=== PATIENT | male | born 1975 | race Caucasian/White ===

== ENCOUNTER 2017-04-20 11:23 | Emergency (ER) | payer SELFPAY ==
[2017-04-20 11:41] VITALS: BP 144/97
[2017-04-20] MEDS ORDERED: XYLOCAINE 2%/EPI 1:100,000 INFILTRATI ONE (11:42)
[2017-04-20] MEDS ORDERED: BOOSTRIX IM ONE (11:43)
[2017-04-20] MEDS ORDERED: NORCO 5/325 PO ONE (11:43)
--- NOTE | 2017-04-20 11:45 | Emergency Department Report ---
- General Chief Complaint: Wound/Laceration Stated Complaint: CUT ARM Time Seen by Provider: 04/20/17 11:42 Source: patient Mode of arrival: Ambulatory Limitations: No Limitations - History of Present Illness Initial Comments: 41-year-old male past medical history none presents with complaint of accidentally cutting his right elbow with a box toe stitcher at work today. Patient states he accidentally grazed an open box toe stitcher that was sent on a table at work. Patient has visible laceration to right elbow approximately 3 inches in length with oozing of blood. Patient unaware of tetanus status. Patient denies any other injuries. Patient is awake alert and oriented 3. Patient visibly flexing and extending his elbow without any difficulty. Onset/Timin -: hour(s) Extremity Location: Right: Elbow (3 inch laceration on the lateral aspect of the right elbow just below right elbow/proximal forearm) 1 - Laceration here Patient Tetanus UTD: No Context: accidental Associated Symptoms: pain - Related Data Previous Rx's Medication Instructions Recorded Last Taken Type Acetaminophen/Codeine [Tylenol 1 tab PO Q6H PRN #8 tab 04/20/17 Unknown Rx /Codeine # 3 tab] Cephalexin [Keflex] 500 mg PO Q12HR #10 cap 04/20/17 Unknown Rx Ibuprofen [Motrin] 600 mg PO Q8H PRN #25 tablet 04/20/17 Unknown Rx Neomycn/Baci Zn/Pmyx Bs/Pramox 28 gm TP BID #1 oint...g. 04/20/17 Unknown Rx [Triple Antibioti-Pain Rlf Oint] ED Review of Systems ROS: Stated complaint: CUT ARM Other details as noted in HPI Constitutional: denies: chills, fever Eyes: denies: eye pain, eye discharge, vision change ENT: denies: ear pain, throat pain Respiratory: denies: cough, shortness of breath, wheezing Cardiovascular: denies: chest pain, palpitations Endocrine: no symptoms reported Gastrointestinal: denies: abdominal pain, nausea, diarrhea Genitourinary: denies: urgency, dysuria Musculoskeletal: denies: back pain, joint swelling, arthralgia Skin: denies: rash, lesions Neurological: denies: headache, weakness, paresthesias Psychiatric: denies: anxiety, depression Hematological/Lymphatic: denies: easy bleeding, easy bruising ED Past Medical Hx - Past Medical History Previous Medical History?: No - Surgical History Past Surgical History?: No - Social History Smoking Status: Current Every Day Smoker Substance Use Type: Alcohol - Medications Home Medications: Home Medications Medication Instructions Recorded Confirmed Last Taken Type Acetaminophen/Codeine [Tylenol 1 tab PO Q6H PRN #8 tab 04/20/17 Unknown Rx /Codeine # 3 tab] Cephalexin [Keflex] 500 mg PO Q12HR #10 cap 04/20/17 Unknown Rx Ibuprofen [Motrin] 600 mg PO Q8H PRN #25 tablet 04/20/17 Unknown Rx Neomycn/Baci Zn/Pmyx Bs/Pramox 28 gm TP BID #1 oint...g. 04/20/17 Unknown Rx [Triple Antibioti-Pain Rlf Oint] ED Physical Exam - General Limitations: No Limitations General appearance: alert, in no apparent distress - Head Head exam: Present: atraumatic, normocephalic - Eye Eye exam: Present: normal appearance, PERRL, EOMI - ENT ENT exam: Present: mucous membranes moist - Neck Neck exam: Present: normal inspection - Respiratory Respiratory exam: Present: normal lung sounds bilaterally. Absent: respiratory distress - Cardiovascular Cardiovascular Exam: Present: regular rate, normal rhythm. Absent: systolic murmur, diastolic murmur, rubs, gallop - GI/Abdominal GI/Abdominal exam: Present: soft, normal bowel sounds - Rectal Rectal exam: Present: deferred - Extremities Exam Extremities exam: Present: normal inspection - Expanded Upper Extremity Exam Right Shoulder Exam: Present: normal inspection, full ROM Upper Arm exam: Present: normal inspection, full ROM Elbow exam: Present: tenderness, laceration (3 inch laceration below area of right elbow/proximal forearm lateral aspect, subcutaneous tissue exposed) Forearm Wrist exam: Present: tenderness, laceration (see above) Hand Wrist exam: Present: normal inspection, full ROM Neuro motor exam: Present: wrist extension intact, thumb opposition intact, thumb IP flexion intact, thumb adduction intact, fingers 2-5 abduction intact, other Vascular: Present: radial pulse, brachial pulse, ulnar pulse (distal pulses fully intact on clinical palpation) - Back Exam Back exam: Present: normal inspection - Neurological Exam Neurological exam: Present: alert, oriented X3, CN II-XII intact, normal gait - Psychiatric Psychiatric exam: Present: normal affect, normal mood - Skin Skin exam: Present: warm, dry, intact, normal color. Absent: rash ED Course Vital Signs 04/20/17 11:39 Temperature 89 F L Pulse Rate 89 Respiratory 18 Rate Blood Pressure 144/97 O2 Sat by Pulse 100 Oximetry - Laceration /Wound Repair Right Proximal Arm Wound Location: upper extremity Wound Length (cm): 7 Wound's Depth, Shape: into muscle Irrigated w/ Saline (ccs): 1,000 Betadine Prep?: Yes Anesthesia: Lidocaine w/ Epi Volume Anesthetic (ccs): 8 Wound Debrided: minimal Wound Repaired With: sutures Suture Size/Type: 3:0, proline Number of Sutures: 10 Layer Closure?: Yes Deep Layer Suture Size/Type: 4:0, chromic Number Deep Layer Sutures: 10 Sterile Dressing Applied?: Yes (triple abx w/ gauze) Progress: procedure tolerated well, minimal bleeding, good wound closure achieved ED Medical Decision Making - Medical Decision Making A/P: Right elbow/forearm laceration 1-tetanus updated today 2-keflex 500 mg twice a day 5 days 3-good wound closure achieved 4-sutures to be removed in approximately 7-10 days 5- advised patient to return to the ED if he experiences any pus drainage from wound or any erythema surrounding site any fevers or chills or difficulty moving his right elbow/forearm Critical care attestation.: If time is entered above; I have spent that time in minutes in the direct care of this critically ill patient, excluding procedure time. ED Disposition Clinical Impression: Forearm laceration Qualifiers: Encounter type: initial encounter Laterality: right Qualified Code(s): S51.811A - Laceration without foreign body of right forearm, initial encounter Disposition: DISCHARGED TO HOME OR SELFCARE Is pt being admited?: No Does the pt Need Aspirin: No Condition: Stable Instructions: Suture Care (ED), Laceration (ED), Absorbable Suture Care (ED) Additional Instructions: Sutures to be removed in approximately 8-10 days Prescriptions: Acetaminophen/Codeine [Tylenol /Codeine # 3 tab] 1 tab PO Q6H PRN #8 tab PRN Reason: Pain Cephalexin [Keflex] 500 mg PO Q12HR #10 cap Ibuprofen [Motrin] 600 mg PO Q8H PRN #25 tablet PRN Reason: Pain Neomycn/Baci Zn/Pmyx Bs/Pramox [Triple Antibioti-Pain Rlf Oint] 28 gm TP BID #1 oint...g. Referrals: EFREN CRUZ MD [Staff Physician] - 3-5 Days [facility] [Outside] - 3-5 Days Forms: Work/School Release Form(ED) Time of Disposition: 13:46
== END 2017-04-20 13:56 | disposition home or self-care (01) ==
LOC: ED 11:23
DX: S51.811A Laceration without foreign body of right forearm, initial encounter (principal); F17.200 Nicotine dependence, unspecified, uncomplicated; W45.8XXA Other foreign body or object entering through skin, initial encounter; Y93.89 Activity, other specified; Y99.8 Other external cause status; Y92.89 Other specified places as the place of occurrence of the external cause
CPT/HCPCS: 90471; 90715